=== PATIENT | male | born 1945 | race Caucasian/White ===

== ENCOUNTER 2018-01-15 06:35 | Day surgery (SDC) | payer OTHER ==
[2018-01-11 09:12] VITALS: BP 129/59
[2018-01-11 09:20] LABS: BASOPHILS % (AUTO) 0.8 % (0.0-5.0); EOSINOPHILS % (AUTO) 3.5 % (0.0-8.0); HEMATOCRIT 43.5 % (42-54); LYMPHOCYTES % (AUTO) 24.9 % (21.0-51.0); MEAN CORPUSCULAR HEMOGLOBIN 30.7 pg (27.0-33.0); MEAN CORPUSCULAR HGB CONC 35.5 g/dL (32.0-36.0); MEAN CORPUSCULAR VOLUME 86.3 fL (79-99); MONOCYTES % (AUTO) 8.5 % (3.0-13.0); NEUTROPHILS % (AUTO) 62.3 % (40.0-77.0); NUCLEATED RED BLOOD CELLS 0.1 % (0.0-0.19); PLATELET COUNT (AUTO) 232 K/uL (130-400); RED BLOOD CELL COUNT(AUTO) 5.04 MIL/uL (4.50-6.20); RED CELL DISTRIBUTION WIDTH 14.8 % (11.0-15.5); WHITE BLOOD COUNT (AUTO) 8.6 K/uL (4.8-10.8)
[2018-01-11 09:21] LABS: APPEARANCE,URINE Clear (CLEAR); BILIRUBIN,URINE Negative (NEGATIVE); COLOR,URINE Yellow (YELLOW); GLUCOSE, URINE (UA) Negative (NEGATIVE); KETONES,URINE Negative (NEGATIVE); LEUKOCYTE ESTERASE ,URINE Negative (NEGATIVE); NITRATE,URINE Negative (NEGATIVE); OCCULT BLOOD,URINE Negative (NEGATIVE); PH,URINE 6.5 (5.0-8.0); PROTEIN,URINE POS 1+ (NEGATIVE)
[2018-01-11 09:41] LABS: BACTERIA,URINE Rare /HPF (None Seen); RBC,URINE 0-1 /HPF (0-1); SQUAMOUS EPITHELIAL CELL,UR None Seen /HPF (0-2); WBC,URINE None Seen /HPF (0-1)
[~2018-01-15] VITALS: Ht 190.5 cm; Wt 104.6 kg
[2018-01-15] VITALS (18 sets, daily range): BP systolic 86–158; BP diastolic 37–85
[~2018-01-15 06:35] MED LIST: ALLO300T2 PO; ATEN1TAB4 PO; DIAZ5TAB4 PO; DIGO250T13 PO; DOXA8TAB81 PO; FLUO-126 PO; GABA-531 PO; GEMF600T3 PO; GLIM4TAB3 PO; HYDR-4068 PO; LISI40TA4 PO; MINO10TA3 PO
[2018-01-15] MEDS ORDERED: SODIUM CHLORIDE 0.9% 1000ML 1,000 ML IV ONE (06:59)
[2018-01-15] MEDS ORDERED: LIDOCAINE PF 2% 5ML ABBOJECT ONE (07:45)
[2018-01-15] MEDS ORDERED: PROPOFOL 10 MG/ML 20ML VIAL IV ONE (07:45)
[2018-01-15] MEDS ORDERED: GLYCOPYRROLATE 0.2 MG/ML 5 ML VIAL ONE (07:45)
[2018-01-15] MEDS ORDERED: DEXAMETHASONE SOD PHOSPHATE 10MG/ML 1ML VIAL ONE (07:45)
[2018-01-15] MEDS ORDERED: MIDAZOLAM HCL 1 MG/ML 2ML VIAL ONE (07:45)
[2018-01-15] MEDS ORDERED: FENTANYL CITRATE PF 50 MCG/1 ML 2ML VIAL ONE (07:47)
[2018-01-15] MEDS ORDERED: MEPERIDINE-PF 50 MG/ML SYG ONE (09:02)
[2018-01-15] MEDS ORDERED: EPHEDRINE SULFATE 50 MG/ML AMPULE ONE (09:49)
== END 2018-01-15 11:25 | disposition home or self-care (01) ==
LOC: DAH 06:35
PROVIDERS: ATTEND Surgery
DX: K40.90 Unilateral inguinal hernia, without obstruction or gangrene, not specified as recurrent (principal); F41.9 Anxiety disorder, unspecified; Z68.27 Body mass index [BMI] 27.0-27.9, adult; E11.40 Type 2 diabetes mellitus with diabetic neuropathy, unspecified; F32.9 Major depressive disorder, single episode, unspecified; M10.9 Gout, unspecified; I10 Essential (primary) hypertension; Z90.49 Acquired absence of other specified parts of digestive tract; Z98.890 Other specified postprocedural states; Z79.899 Other long term (current) drug therapy; Z79.84 Long term (current) use of oral hypoglycemic drugs; Z83.3 Family history of diabetes mellitus; Z85.3 Personal history of malignant neoplasm of breast; F17.200 Nicotine dependence, unspecified, uncomplicated; E66.01 Morbid (severe) obesity due to excess calories
CPT/HCPCS: 36415; 49505; 80048; 81001; 82948 ×2; 85025; 93005; A4450; A4452; C1729; C1781; J1100; J2001; J2175; J2250; J2704; J3010; J3490 ×2; J7030 ×2

== ENCOUNTER 2019-07-08 21:44 | Emergency (ER) | payer MEDICARE, OTHER ==
[~2019-07-08 21:44] MED LIST changes: -GEMF600T3 PO; +GEMF600T5 PO; -GLIM4TAB3 PO; +GLIM4TAB5 PO
[2019-07-08 22:43] LABS: CREATININE 0.9 mg/dL (0.5-1.5); POTASSIUM 3.7 mmol/L (3.5-5.1)
[2019-07-08 22:47] LABS: ALBUMIN 3.4 g/dL (3.5-5.0); BILIRUBIN,TOTAL 0.6 mg/dL (0.2-1.0); TOTAL PROTEIN, SERUM 7.4 g/dL (6.0-8.3)
[2019-07-08 23:01] LABS: BASOPHILS % (AUTO) 0.7 % (0.0-5.0); EOSINOPHILS % (AUTO) 1.5 % (0.0-8.0); HEMATOCRIT 36.3 % (42-54); LYMPHOCYTES % (AUTO) 14.2 % (21.0-51.0); MEAN CORPUSCULAR HEMOGLOBIN 30.3 pg (27.0-33.0); MEAN CORPUSCULAR HGB CONC 35.3 g/dL (32.0-36.0); MEAN CORPUSCULAR VOLUME 85.9 fL (79-99); MONOCYTES % (AUTO) 6.3 % (3.0-13.0); NEUTROPHILS % (AUTO) 77.3 % (40.0-77.0); PLATELET COUNT (AUTO) 215 K/uL (130-400); RED BLOOD CELL COUNT(AUTO) 4.23 MIL/uL (4.50-6.20); RED CELL DISTRIBUTION WIDTH 14.1 % (11.0-15.5); WHITE BLOOD COUNT (AUTO) 10.8 K/uL (4.8-10.8)
[2019-07-08] MEDS ORDERED: BISACODYL 10 MG SUPP.RECT RC ONE (23:09)
[2019-07-14] MEDS ORDERED: DIGO125T87 PO (12:28)
== END 2019-07-09 00:19 | disposition home or self-care (01) ==
LOC: EDH 21:44
DX: K59.00 Constipation, unspecified (principal); G89.29 Other chronic pain; M54.9 Dorsalgia, unspecified; I10 Essential (primary) hypertension; E78.00 Pure hypercholesterolemia, unspecified; E11.40 Type 2 diabetes mellitus with diabetic neuropathy, unspecified; Z90.49 Acquired absence of other specified parts of digestive tract; Z98.890 Other specified postprocedural states; Z72.0 Tobacco use
CPT/HCPCS: 36415; 74176; 80053; 83690; 85025

== ENCOUNTER 2019-07-14 09:55 | Observation (INO) | payer MEDICARE ==
[~2019-07-14] VITALS: Ht 188 cm; Wt 88.8 kg
[~2019-07-14 09:55] MED LIST changes: -FLUO-126 PO; +FLUO20CA34 PO
[2019-07-14 11:09] LABS: BASOPHILS % (AUTO) 0.4 % (0.0-5.0); EOSINOPHILS % (AUTO) 0.5 % (0.0-8.0); HEMATOCRIT 36.6 % (42-54); LYMPHOCYTES % (AUTO) 8.1 % (21.0-51.0); MEAN CORPUSCULAR HEMOGLOBIN 30.2 pg (27.0-33.0); MEAN CORPUSCULAR HGB CONC 35.1 g/dL (32.0-36.0); MEAN CORPUSCULAR VOLUME 86.2 fL (79-99); MONOCYTES % (AUTO) 5.9 % (3.0-13.0); NEUTROPHILS % (AUTO) 85.1 % (40.0-77.0); PLATELET COUNT (AUTO) 188 K/uL (130-400); RED BLOOD CELL COUNT(AUTO) 4.25 MIL/uL (4.50-6.20); RED CELL DISTRIBUTION WIDTH 14.4 % (11.0-15.5); WHITE BLOOD COUNT (AUTO) 13.5 K/uL (4.8-10.8)
[2019-07-14 11:19] LABS: CREATININE 1.1 mg/dL (0.5-1.5); POTASSIUM 3.7 mmol/L (3.5-5.1)
[2019-07-14 11:25] LABS: BILIRUBIN,DIRECT 0.3 mg/dL (0.0-0.3); BILIRUBIN,TOTAL 0.6 mg/dL (0.2-1.0); TOTAL PROTEIN, SERUM 7.3 g/dL (6.0-8.3)
[2019-07-14 11:52] VITALS: BP 111/54
[2019-07-14] MEDS ORDERED: ZOLPIDEM TARTRATE 5 MG TAB PO PRN (12:00)
[2019-07-14] MEDS ORDERED: POTASSIUM CHLORIDE 20 MEQ ERTAB PO PRN (12:00)
[2019-07-14] MEDS ORDERED: DIPHENHYDRAMINE HCL 25 MG CAPSULE PO PRN (12:00)
[2019-07-14] MEDS ORDERED: POTASSIUM CHLORIDE 20MEQ/100ML 100 ML IV PRN (12:00)
[2019-07-14] MEDS ORDERED: DEXTROSE 50%-WATER 50 ML DISP.SYRIN IV PRN (12:00)
[2019-07-14] MEDS ORDERED: 1/2 NORMAL SALINE 1,000 ML IV SCH (12:00)
[2019-07-14] MEDS ORDERED: POTASSIUM CHLORIDE 10% ELIXIR 20 MEQ/15 ML UDCUP PO PRN (12:00)
[2019-07-14] MEDS ORDERED: LIDOCAINE HCL-MPF 1% 2ML VIAL IJ PRN (12:00)
[2019-07-14] MEDS ORDERED: GLUCAGON 1MG KIT 1 MG ML IM PRN (12:00)
[2019-07-14] MEDS ORDERED: GUAIFENESIN-DM 200/20 MG 10 ML PO PRN (12:00)
[2019-07-14] MEDS ORDERED: ACETAMINOPHEN 325 MG TAB PO PRN (12:00)
[2019-07-14] MEDS ORDERED: ONDANSETRON HCL 4 MG/2 ML VIAL IVP PRN (12:00)
[2019-07-14] MEDS ORDERED: IPRATROPIUM/ALBUTEROL SULFATE 3 ML SOLUTION IH SCH (12:00)
[2019-07-14] MEDS ORDERED: HYDROMORPHONE PCA 10MG/50 ML ( 0.2 MG/ML ) IV PRN (12:15)
[2019-07-14] MEDS ORDERED: NALOXONE HCL 0.4 MG/1 ML ML IVP PRN (12:15)
[2019-07-14] MEDS ORDERED: FENO145T PO (12:28)
[2019-07-14] MEDS ORDERED: GABA-533 PO (12:28)
[2019-07-14] MEDS ORDERED: NALO25TA PO (12:28)
[2019-07-14] MEDS ORDERED: DIGO125T71 PO (12:28)
[2019-07-14] MEDS ORDERED: ATOR10TA69 PO (12:28)
[2019-07-14] MEDS ORDERED: GADODIAMIDE 10 MMOL/20 ML VIAL IV ONE (12:33)
--- NOTE | 2019-07-14 13:00 | NUR ---
NOTE ADMITTED FROM DR QUINTANA'S OFFICE. STABLE. CAME IN WITH BACK PAIN. HE WILL HAVE MRI LUMBAR AND THORACIC SPINE. ASKING FOR SOMETHING FOR ANXIETY SO HE CAN HAVE MRI DONE FOR HE IS CLAUSTROPHOBIC.
[2019-07-14 13:07] LABS: B-TYPE NATRIURETIC PEPTIDE 182 pg/mL (0-100)
[2019-07-14] MEDS: IPRATROPIUM/ALBUTEROL SULFATE 3 ML SOLUTION IH SCH ×2 (14:59→22:00)
[2019-07-14] MEDS ORDERED: INSULIN R PO SSI SQ SCH (16:30)
[2019-07-14] MEDS: HUMALOG PO SS1 SQ SCH ×2 (16:30→21:00)
[2019-07-14 16:36] VITALS: BP 137/65
[2019-07-14] MEDS ORDERED: HYDROCODONE/ACETAMINOPHEN 10/325 MG TAB PO PRN (17:30)
--- NOTE | 2019-07-14 18:00 | NUR ---
NOTE STABLE. HAS BEEN SLEEPING MOST OF THE DAY. DID NOT EVEN ASK FOR SOMETHING FOR SEDATIVE WHEN HE WENT FOR MRI. HE IS JUST WAKING UP ASKING FOR HAT BINDER PUMP WHICH HAS BEEN CONNECTED ALL ALONG.
[2019-07-14 19:42] VITALS: BP 142/61
[2019-07-14] MEDS ORDERED: Gabapentin 800 MG PO SCH (21:00)
[2019-07-14] MEDS ORDERED: DOXAZOSIN MESYLATE 2 MG TABLET PO SCH (21:00)
[2019-07-14] MEDS ORDERED: LISINOPRIL 40 MG TABLET PO SCH (21:00)
[2019-07-14] MEDS ORDERED: ATORVASTATIN CALCIUM 10 MG TABLET PO SCH (21:00)
[2019-07-14 23:43] VITALS: BP 179/75
[2019-07-15 03:41] VITALS: BP 126/63
[2019-07-15] MEDS: IPRATROPIUM/ALBUTEROL SULFATE 3 ML SOLUTION IH SCH (04:54)
[2019-07-15 05:51] LABS: BASOPHILS % (AUTO) 0.6 % (0.0-5.0); EOSINOPHILS % (AUTO) 0.7 % (0.0-8.0); HEMATOCRIT 36.7 % (42-54); LYMPHOCYTES % (AUTO) 12.8 % (21.0-51.0); MEAN CORPUSCULAR HEMOGLOBIN 30.1 pg (27.0-33.0); MEAN CORPUSCULAR HGB CONC 35.1 g/dL (32.0-36.0); MEAN CORPUSCULAR VOLUME 85.6 fL (79-99); MONOCYTES % (AUTO) 6.7 % (3.0-13.0); NEUTROPHILS % (AUTO) 79.2 % (40.0-77.0); PLATELET COUNT (AUTO) 224 K/uL (130-400); RED BLOOD CELL COUNT(AUTO) 4.29 MIL/uL (4.50-6.20); RED CELL DISTRIBUTION WIDTH 14.2 % (11.0-15.5); WHITE BLOOD COUNT (AUTO) 13.7 K/uL (4.8-10.8)
[2019-07-15 06:10] LABS: ALBUMIN 3.2 g/dL (3.5-5.0); BILIRUBIN,DIRECT 0.2 mg/dL (0.0-0.3); BILIRUBIN,TOTAL 0.7 mg/dL (0.2-1.0); CREATININE 1.2 mg/dL (0.5-1.5); POTASSIUM 3.7 mmol/L (3.5-5.1); TOTAL PROTEIN, SERUM 7.8 g/dL (6.0-8.3)
[2019-07-15] MEDS: HUMALOG PO SS1 SQ SCH (07:01)
[2019-07-15 08:00] VITALS: BP 114/58
[2019-07-15] MEDS ORDERED: GLIMEPIRIDE 2 MG TABLET PO SCH (08:00)
--- NOTE | 2019-07-15 08:17 | NUR ---
FLU VACCINE STATES HAD VACCINE IN Addendum: 07/15/19 at 0819 by QUANG WHITE RN Amended: Links added.
--- NOTE | 2019-07-15 08:30 | NUR ---
DISCHARGE INSTRUCTIONS REVIEWED DISCHARGE INSTRUCTIONS WITH PT., INFORMED PT TO MAKE FOLLOW UP APPT AND REAL TIME TRADER PRESCRIPTION TODAY PER SAID THIS MORNING. Addendum: 07/15/19 at 0840 by QUANG WHITE RN ADDENDUM REMOVED 20 G. PIV FROM RIGHT HAND, CATHETER INTACT.
[2019-07-15] MEDS ORDERED: DIGOXIN 125 MCG TABLET PO SCH (09:00)
[2019-07-15] MEDS ORDERED: FENOFIBRATE NANOCRYSTALLIZED 145 MG TAB PO SCH (09:00)
[2019-07-15] MEDS ORDERED: MINOXIDIL 2.5 MG TAB PO SCH (09:00)
[2019-07-15] MEDS ORDERED: ALLOPURINOL 300 MG TABLET PO SCH (09:00)
[2019-07-15] MEDS ORDERED: ATENOLOL CHLORTHALIDONE PO SCH (17:00)
== END 2019-07-15 09:12 | disposition home or self-care (01) ==
LOC: EDH 09:55 → EDHIP 10:42 → 4BH 11:46
PROVIDERS: ADMIT Internal Medicine; ATTEND Internal Medicine
DX: M54.6 Pain in thoracic spine (principal); M54.5 Low back pain; I10 Essential (primary) hypertension; E78.5 Hyperlipidemia, unspecified; J44.9 Chronic obstructive pulmonary disease, unspecified; G89.4 Chronic pain syndrome; E11.40 Type 2 diabetes mellitus with diabetic neuropathy, unspecified; M10.9 Gout, unspecified; E78.00 Pure hypercholesterolemia, unspecified; F17.200 Nicotine dependence, unspecified, uncomplicated; Z90.49 Acquired absence of other specified parts of digestive tract; Z79.84 Long term (current) use of oral hypoglycemic drugs; Z79.899 Other long term (current) drug therapy
CPT/HCPCS: 36415 ×2; 72146; 72148; 80048; 80053; 80076 ×2; 82948 ×3; 83880; 85025 ×2; 93005 ×2; 94640 ×2; 94664; 96365; 99284; G0378 ×22; J1170; A9579